=== PATIENT | female | born 1970 | race Caucasian/White ===

== ENCOUNTER → 2017-10-13 08:29 | Outpatient (CLI) | payer OTHER ==
[2017-10-14 10:22] LABS: HEPATITIS C ANTIBODY <0.1 (0.0-0.9)
== END | disposition home or self-care (01) ==
LOC: D.US 08:29
PROVIDERS: Internal Medicine Gastroenterology
DX: R79.89 Other specified abnormal findings of blood chemistry (principal); Z51.81 Encounter for therapeutic drug level monitoring; Z79.899 Other long term (current) drug therapy

== ENCOUNTER → 2017-10-19 09:18 | Outpatient (CLI) | payer OTHER | END | disposition home or self-care (01) | LOC: D.MRI 09:18 | DX: R93.2 Abnormal findings on diagnostic imaging of liver and biliary tract (principal); R79.89 Other specified abnormal findings of blood chemistry ==

== ENCOUNTER → 2017-10-27 08:50 | Outpatient (CLI) | payer OTHER ==
[~2017-10-27 08:50] MED LIST: LIALDA1.2 G PO
[2017-10-27 09:22] LABS: BASOPHILS 0.3 % (0-2); EOSINOPHILS 3.6 % (0-7); HEMATOCRIT 35.9 % (36.0-48.0); HEMOGLOBIN 12.4 g/dL (12-16); IMMATURE GRANULOCYTES 0.3 % (0-5); LYMPHOCYTES 23.1 % (15-50); MCH 37.7 pg (26.0-34.0); MCHC 34.5 g/dL (31.0-37.0); MCV 109.1 fL (80.0-100.0); MEAN PLATELET VOLUME 10.2 fL (7.4-10.4); MONOCYTES 10.6 % (2-11); NEUTROPHILS 62.1 % (40-80); RBC 3.29 10x6/uL (4.00-5.40); RDW 13.8 % (11.5-14.5); WBC 3.6 10x3/uL (4.8-10.8)
[2017-10-27 09:37] LABS: INR 0.96 (0.85-1.17); PROTIME 12.4 SECONDS (11.6-15.0)
[2017-10-27 09:38] LABS: APTT 32.3 SECONDS (22.8-39.4)
[2017-10-27 09:56] LABS: PLATELET COUNT 105 10x3/uL (130-400)
[2017-10-27 10:02] LABS: ALKALINE PHOSPHATASE 106 U/L (46-116); ALT (SGPT) 40 U/L (10-68); BILIRUBIN - DIRECT 0.37 mg/dL (0.00-0.30); BILIRUBIN - INDIRECT 1.47 mg/dL (0.00-1.00); BILIRUBIN - TOTAL 1.84 mg/dL (0.2-1.3); CALC OSMOLALITY 282 mosm/kg (275-300); CALCIUM 8.2 mg/dL (8.5-10.1); CARBON DIOXIDE 27.5 mmol/L (21.0-32.0); CHLORIDE - SERUM 107 mmol/L (98-107); CHOL - HDL RATIO 2.1 ratio (2.3-4.1); CHOLESTEROL, TOTAL 194 mg/dL (0-200); CREATININE - SERUM 0.5 mg/dL (0.6-1.3); FERRITIN 28 ng/mL (3-244); GAMMA GT 60 U/L (5-85); GLUCOSE 92 mg/dL (74-106); HDL CHOLESTEROL 93 mg/dL (32-96); LDL CHOLESTEROL 93 mg/dL (0-100); POTASSIUM - SERUM 3.9 mmol/L (3.5-5.1); PROTEIN - SERUM 6.6 g/dL (6.4-8.2); SODIUM 143 mmol/L (136-145); TRIGLYCERIDE 42 mg/dL (30-200); UREA NITROGEN 8 mg/dL (7-18); eGFR NON AFRICAN AMERICAN > 90 mL/min (90-120)
[2017-10-27 10:06] LABS: % SATURATION 47 % (15-55); IRON 170 ug/dl (35-150); TOTAL IRON BIND CAPACITY 358 ug/dl (260-445); UNSAT IRON BIND CAPACITY 188 ug/dl (150-375)
[2017-10-28 08:22] LABS: FOLATE (FOLIC ACID) - SERUM 18.3 ng/mL (>3.0)
[2017-10-28 10:19] LABS: ALPHA FETOPROTEIN -(TUMOR MRK) 5.1 ng/mL (0.0-8.3)
[2017-10-28 12:16] LABS: HAPTOGLOBIN 30 mg/dL (34-200)
[2017-10-28 16:13] LABS: ANA REFLEX - ANTICHROMATIN ABS <0.2 AI (0.0-0.9); ANA REFLEX - CENTROMERE B ABS <0.2 AI (0.0-0.9); ANA REFLEX - DBL STRANDED DNA 2 IU/mL (0-9); ANA REFLEX - DIRECT Positive (Negative); ANA REFLEX - JO-1 AB <0.2 AI (0.0-0.9); ANA REFLEX - RNP ANTIBODIES <0.2 AI (0.0-0.9); ANA REFLEX - SCL-70 <0.2 AI (0.0-0.9); ANA REFLEX - SJOGRENS AB SSA <0.2 AI (0.0-0.9); ANA REFLEX - SJOGRENS AB SSB 3.6 AI (0.0-0.9); ANA REFLEX - SMITH AB <0.2 AI (0.0-0.9)
[2017-10-29 13:17] LABS: MITOCHONDRIAL ANTIBODY 10.7 Units (0.0-20.0); SMOOTH MUSCLE ABS (ACTIN) 49 Units (0-19)
[2017-12-09 09:27] VITALS: BMI 25.5
== END | disposition home or self-care (01) ==
LOC: D.LAB 08:15
PROVIDERS: Internal Medicine Gastroenterology
DX: K76.9 Liver disease, unspecified (principal); R79.89 Other specified abnormal findings of blood chemistry; Z51.81 Encounter for therapeutic drug level monitoring; Z79.899 Other long term (current) drug therapy

== ENCOUNTER 2017-12-09 07:47 | Outpatient (CLI) | payer OTHER ==
[~2017-12-09] VITALS: Ht 157.5 cm; Wt 63.2 kg
[2017-12-09 08:22] LABS: BASOPHILS 0.2 % (0-2); EOSINOPHILS 1.8 % (0-7); HEMATOCRIT 36.5 % (36.0-48.0); HEMOGLOBIN 12.6 g/dL (12-16); IMMATURE GRANULOCYTES 0.4 % (0-5); LYMPHOCYTES 16.4 % (15-50); MCHC 34.5 g/dL (31.0-37.0); MEAN PLATELET VOLUME 9.9 fL (7.4-10.4); MONOCYTES 8.5 % (2-11); NEUTROPHILS 72.7 % (40-80); PLATELET COUNT 97 10x3/uL (130-400); RBC 3.41 10x6/uL (4.00-5.40); RDW 14.6 % (11.5-14.5); WBC 5.7 10x3/uL (4.8-10.8)
[2017-12-09 08:28] LABS: CALC OSMOLALITY 275 mosm/kg (275-300); CALCIUM 8.3 mg/dL (8.5-10.1); CARBON DIOXIDE 28.5 mmol/L (21.0-32.0); CHLORIDE - SERUM 107 mmol/L (98-107); CREATININE - SERUM 0.4 mg/dL (0.6-1.3); GLUCOSE 90 mg/dL (74-106); POTASSIUM - SERUM 3.6 mmol/L (3.5-5.1); SODIUM 139 mmol/L (136-145); UREA NITROGEN 7 mg/dL (7-18); eGFR NON AFRICAN AMERICAN > 90 mL/min (90-120)
[2017-12-09 08:41] LABS: APTT 33.9 SECONDS (22.8-39.4); INR 1.02 (0.85-1.17)
[2017-12-09 09:27] VITALS: Ht 157.5 cm; Wt 63.2 kg
[2017-12-09] MEDS ORDERED: LIALDA1.2 G PO (09:32)
[2017-12-09 09:58] LABS: PLATELET ESTIMATE DECREASED
== END 2017-12-09 15:45 | disposition home or self-care (01) ==
LOC: D.SP 07:47 → D.CT 10:00 → D.SP 15:45
PROVIDERS: Radiology Vascular & Interventional Radiology
DX: K76.89 Other specified diseases of liver (principal); Z01.812 Encounter for preprocedural laboratory examination

== ENCOUNTER → 2018-01-04 07:57 | Outpatient (CLI) | payer OTHER ==
[2017-12-09 09:27] VITALS: BMI 25.5
== END | disposition home or self-care (01) ==
LOC: D.MRI 12-30 08:30
DX: R79.89 Other specified abnormal findings of blood chemistry (principal); R93.8 Abnormal findings on diagnostic imaging of other specified body structures

== ENCOUNTER → 2018-08-27 09:14 | Outpatient (CLI) | payer OTHER ==
[2017-12-09 09:27] VITALS: BMI 25.5
== END | disposition home or self-care (01) ==
LOC: D.LAB 08-17 08:00
PROVIDERS: ATTEND Internal Medicine Gastroenterology
DX: K50.90 Crohn's disease, unspecified, without complications (principal); Z14.8 Genetic carrier of other disease

== ENCOUNTER → 2018-09-03 08:45 | Outpatient (CLI) | payer OTHER ==
[2017-12-09 09:27] VITALS: BMI 25.5
== END | disposition home or self-care (01) ==
LOC: D.LAB 08:45
PROVIDERS: ATTEND Family Medicine
DX: K51.90 Ulcerative colitis, unspecified, without complications (principal)

== ENCOUNTER → 2018-09-27 09:29 | Outpatient (CLI) | payer OTHER ==
[2017-12-09 09:27] VITALS: BMI 25.5
[~2018-09-27 09:29] MED LIST changes: +ANUSOL-HC 2.5%30 GM RC; +LOMOTIL 2.5-0.1 EAC1 PO; +PREDNISONE10 MG PO; +lialda PO
[2018-09-27 10:19] LABS: BASOPHILS 0.1 % (0-2); EOSINOPHILS 0.1 % (0-7); HEMATOCRIT 28.8 % (36.0-48.0); HEMOGLOBIN 8.4 g/dL (12-16); IMMATURE GRANULOCYTES 0.2 % (0-5); LYMPHOCYTES 15.3 % (15-50); MCH 25.2 pg (26.0-34.0); MCHC 29.2 g/dL (31.0-37.0); MCV 86.5 fL (80.0-100.0); MEAN PLATELET VOLUME 11.1 fL (7.4-10.4); MONOCYTES 9.2 % (2-11); NEUTROPHILS 75.1 % (40-80); RBC 3.33 10x6/uL (4.00-5.40); RDW 14.8 % (11.5-14.5); WBC 8.2 10x3/uL (4.8-10.8)
[2018-09-27 10:22] LABS: PLATELET COUNT 161 10x3/uL (130-400)
[2018-09-27 11:24] LABS: ERYTHROCYTE SEDIMENTATION RATE 21 mm/hr (0-20)
== END | disposition home or self-care (01) ==
LOC: D.LAB 09:29
PROVIDERS: ATTEND Internal Medicine Gastroenterology
DX: K62.5 Hemorrhage of anus and rectum (principal); K51.90 Ulcerative colitis, unspecified, without complications

== ENCOUNTER 2018-09-27 11:38 | Inpatient (IN) | payer OTHER ==
[~2018-09-27 11:38] MED LIST changes: -ANUSOL-HC 2.5%30 GM RC; -LOMOTIL 2.5-0.1 EAC1 PO; -PREDNISONE10 MG PO; -lialda PO
[2018-09-27] MEDS ORDERED: ANUSOL-HC 2.5%30 GM RC (11:45)
[2018-09-27 12:31] LABS: BASOPHILS 0.1 % (0-2); EOSINOPHILS 0.4 % (0-7); HEMATOCRIT 27.5 % (36.0-48.0); HEMOGLOBIN 8.1 g/dL (12-16); IMMATURE GRANULOCYTES 0.3 % (0-5); MCH 25.2 pg (26.0-34.0); MCHC 29.5 g/dL (31.0-37.0); MCV 85.7 fL (80.0-100.0); MEAN PLATELET VOLUME 10.8 fL (7.4-10.4); MONOCYTES 10.3 % (2-11); NEUTROPHILS 72.9 % (40-80); PLATELET COUNT 159 10x3/uL (130-400); RBC 3.21 10x6/uL (4.00-5.40); RDW 14.6 % (11.5-14.5)
[2018-09-27 13:46] LABS: ALBUMIN 2.3 g/dL (3.4-5.0); ALKALINE PHOSPHATASE 56 U/L (46-116); ALT (SGPT) 19 U/L (10-68); AMYLASE - SERUM 27 U/L (25-115); BILIRUBIN - TOTAL 0.62 mg/dL (0.2-1.3); CALC OSMOLALITY 279 mosm/kg (275-300); CALCIUM 8.2 mg/dL (8.5-10.1); CARBON DIOXIDE 33.1 mmol/L (21.0-32.0); CHLORIDE - SERUM 105 mmol/L (98-107); CREATININE - SERUM 0.5 mg/dL (0.6-1.3); GLUCOSE 100 mg/dL (74-106); LIPASE 80 U/L (73-393); PROTEIN - SERUM 6.4 g/dL (6.4-8.2); SODIUM 141 mmol/L (136-145); UREA NITROGEN 10 mg/dL (7-18); eGFR NON AFRICAN AMERICAN > 90 mL/min (90-120)
[2018-09-27 13:50] LABS: POTASSIUM - SERUM 2.6 mmol/L (3.5-5.1)
--- NOTE | 2018-09-27 15:32 | MORECARE ---
CASE MANAGEMENT DISCHARGE SUMMARY PATIENT: DEBBIE RANDHAWA UNIT: [id number] ADM DATE: 09/27/18 AGE: 47 : 74 SEX: F ROOM/BED: D.E14 AUTHOR: PARIS DE LA TORRE PHYSICIAN: REFERRING PHYSICIAN: TEJA JACK MD DATE OF SERVICE: 09/27/18 Discharge Plan Patient Name: DEBBIE RANDHAWA Facility: [facility]:[place] : 1970 Planned Disposition: Home Anticipated Discharge Date: 09/29/18 Discharge Date: Expected LOS: 2 Initial Reviewer: [email or web address] Initial Review Date: 09/27/2018 Generated: 09/27/18 4:31 pm DCP- Discharge Planning Updated by [email or web address]: Elyse Stewart on 09/27/18 2:[address] Patient Name: DEBBIE RANDHAWA Admission Status: ER Accout number: [id number] Admission Date: 09-27-2018 : 1970 Admission Diagnosis: Attending: TEJA JACK Current LOS: 1 Anticipated DC Date: 09-29-2018 Planned Disposition: Home Primary Insurance: [employer] POS Discharge Planning Comments: CM met with patient to complete initial dc planning assessment. CM educated patient on the CM role and verbal consent given by patient to complete assessment. CM verified patient's address, phone number, and emergency contact phone numbers. Patient lives at home independently with her . At discharge patient plans to return home and feels this is a safe discharge. CM discussed availability of home health, rehab services, and medical equipment. Patient denied known discharge needs at this time. Patient reports her will transport him/her home at time of discharge. CM will continue to follow and will assist as needed with dc plans/needs. Hip Hop Dancer: Elyse Stewart RN, [facility] DCPIA - Discharge Planning Initial Assessment Updated by [email or web address]: Elyse Stewart on 09/27/18 3:29 pm * Is the patient Alert and Oriented? Yes * PCP Dr. Jack * Pharmacy [facility] * Preadmission Environment Home with Family * ADLs Independent * Equipment None * List name and contact numbers for known caregivers / representatives who currently or will assist patient after discharge: Cristi Randhawa - spouse - [phone] * Verbal permission to speak to the caregivers and representatives has been obtained from the patient. Yes * Community resources currently utilized None * Additional services required to return to the preadmission environment? No * Can the patient safely return to the preadmission environment? Yes * Has this patient been hospitalized within the prior 30 days at any hospital? No Patient Name: DEBBIE RANDHAWA Page [id number] at 1532 All edits/amendments must be made on the electronic document DICTATION DATE: 09/27/181530 MANAGER MARKETING: MARKY 09/27/181530 RPT#: [id number] DC DATE: STATUS: ADM IN [facility] [address] [place] [address] END OF REPORT
[2018-09-27 17:20] VITALS: BP 134/89; BMI 23.5
[2018-09-27 19:10] LABS: HEMATOCRIT 26.7 % (36.0-48.0); HEMOGLOBIN 7.8 g/dL (12-16)
[2018-09-27 20:00] VITALS: BP 115/53
--- NOTE | 2018-09-27 20:00 | NUR ---
LAB CALLED ABOUT CRITICAL POTASSIUM OF 2.8. TREATED PER ELECTRILYTE PROTOCOL. WCTM
--- NOTE | 2018-09-27 20:00 | NUR ---
PT LYING IN BED. CALL LIGHT IN REACH. PT DENIES NEEDS OR PAIN. PT DID HAVE ELEVATED TEMP OF 100.3. DR. JACK IS AWARE AND ORDERED TYLENOL. PT DID COMPLAIN OF NAUSEA ZOFRAN WAS ORDERED ALSO. IN ROOM. BED IN LOW. SIDE RAILS X2. PT TAKES SELF TO BATHROOM. A/O X4. LUNGS CLEAR. BOWEL ACTIVE X4. WILL CONTINUE TO MONITOR.
--- NOTE | 2018-09-27 21:10 | HP ---
PATIENT: DEBBIE KAPADIA MEDICAL RECORD: [id number] ACCOUNT: [id number] LOCATION:[facility] D.2113 : 74 ADMISSION DATE: 09/27/18 PCP: TEJA JACK MD HISTORY AND PHYSICAL EXAMINATION DATE OF ADMISSION: 09/27/2018 CHIEF COMPLAINT: Bloody stools and rectal bleeding. HISTORY: This is a 47-year-old female who has ulcerative colitis and is followed by Dr. Aponte. She has had some bloody stools now for about 6 weeks along with abdominal cramping and pain. She is having trouble holding down solid foods due to her pain. She has been treated for ulcerative colitis, currently using hydrocortisone enemas b.i.d. for the last couple of weeks and her symptoms are ongoing, so she was referred here after calling Dr. Aponte's office. In the ER, her hemoglobin was 8.1 and hematocrit was 27.5. Repeat about 6 hours later showed her hemoglobin down to 7.8. Potassium was low at 2.6. Liver functions were normal. CT of abdomen and pelvis showed near pancolonic inflammatory changes in the rectum, sigmoid, descending, and transverse colon to the level of the hepatic flexure. She is admitted for further treatment of her ulcerative colitis. PAST MEDICAL HISTORY: Ulcerative colitis. She has had iron-deficiency anemia and been followed by Dr. Good for that. She has a history of scoliosis. PAST SURGICAL HISTORY: Bilateral tubal ligation. HOME MEDICATIONS: None now. She was on hydrocortisone enemas and completed that. ALLERGIES: PENICILLIN. FAMILY HISTORY: Parents with hypertension. SOCIAL HISTORY: She is . HABITS: No tobacco, alcohol, or drugs. REVIEW OF SYSTEMS: GENERAL: No major weight changes. HEENT: No particular sinus or allergy problems. RESPIRATORY: No history of asthma or emphysema. CARDIAC: No chest pain, palpitations, or history of heart disease. GASTROINTESTINAL: See above history. GENITOURINARY: No significant problems there. MUSCULOSKELETAL: No significant joint aches and pains. NEUROLOGIC: No seizures or migraines. PSYCHIATRIC: No depression or melancholia. PHYSICAL EXAMINATION: VITAL SIGNS: Temperature 98.8, pulse 87, respirations 16, blood pressure 134/89, and O2 sat 98%. GENERAL: She is in no acute distress. She is awake and alert. SKIN: Warm and dry. HEENT: Grossly within normal limits. HISTORY AND PHYSICAL [id number] DEBBIE KAPADIA NECK: Supple. No JVD or bruit. HEART: Regular rate and rhythm. No murmur. LUNGS: Clear. ABDOMEN: Soft. There is some mild tenderness. No guarding. No rebound. No mass. RECTAL: Not done. EXTREMITIES: No edema. LABORATORY DATA: CBC with white count of 8000, hemoglobin 8.1, and hematocrit 27.5 with recheck at 1855 hours down to 7.8 and 26.7 respectively. Basic metabolic panel is all normal except potassium was 2.6. Liver functions are normal as is amylase and lipase. CT of abdomen and pelvis shows near pancolonic inflammatory changes in rectum, sigmoid colon, descending colon, and transverse colon to the level of hepatic flexure. Of note, the patient was noted to have temperature this evening of 100.5. The patient and her state that she has been getting fever like that for the last 3 or 4 nights. She states she may be developing urinary tract infection. ASSESSMENT: 1. Ulcerative colitis with rectal bleed. 2. Acute blood loss anemia. 3. Hypokalemia. 4. Low-grade fever. PLAN: We will get blood cultures times 2 and urinalysis with culture if indicated. We will replace potassium. We will give her one unit of packed red blood cells and clear liquid diet. Dr. Aponte is consulted. Other tests or procedures as warranted. TRANSINT:[id number] Voice Confirmation ID: [id number] DOCUMENT ID: [id number] TEJA JACK MD at 2110 CC: [id number] DICTATION DATE: 09/27/181946 NAIL ASSEMBLY MACHINE OPERATOR: 09/27/182009 ADM IN [facility] [address] [place] [address]
--- NOTE | 2018-09-27 22:05 | NUR ---
BLOOD CONSENT SIGNED. VITALS WNL. BLOOD TRANSFUSION STARTED. WCTM CALL LIGHT IN REACH.
[2018-09-28] VITALS: BP 103/50
--- NOTE | 2018-09-28 01:02 | NUR ---
PT BLOOD TRANSFUSION COMPLETE. H&H HAS BEEN ORDERED AND LAST POTASSIUM FOR THE ELECT. PROT. WAS GIVEN. LAB FOR CMP IS ORDERED FOR 0500. WILL CHECK POTASSIUM WITH THAT LAB. VITALS WNL AFTER BLOOD. WCTM CALL LIGHT IN REACH
[2018-09-28 01:36] LABS: HEMATOCRIT 28.8 % (36.0-48.0)
--- NOTE | 2018-09-28 02:00 | NUR ---
BLOOD FINISHED AND PT WANTED ZOFRAN DRIP STARTED. THIS NURSE STARTED ZOFRAN DRIP. WCTM
[2018-09-28 02:51] LABS: ERYTHROCYTE SEDIMENTATION RATE 20 mm/hr (0-20)
--- NOTE | 2018-09-28 03:09 | NUR ---
PT HAS HAD MULTIPLE LOOSE STOOLS AND THEY ARE BLOODY. STOOL SAMPLE HAS BEEN SENT TO LAB WAITING FOR RESULTS. PT ASKED THIS NURSE TO PAGE DOCTOR ABOUT GETTING IMMODIUM DUE TO BUTTOCKS HURTING. PAGED HUBERT WAITING FOR PHONE CALL BACK. WCTM
[2018-09-28 04:00] VITALS: BP 105/53
--- NOTE | 2018-09-28 04:25 | NUR ---
I have reviewed this patient and I concur with the Shift Assessment completed by the Licensed Practical Nurse today this shift.
[2018-09-28 05:01] LABS: APPEARANCE HAZY (CLEAR); BILIRUBIN NEGATIVE (NEGATIVE); COLOR DK YELLOW (YELLOW); GLUCOSE NEGATIVE (NEGATIVE); KETONE LARGE mg/dL (NEGATIVE); NITRITE NEGATIVE (NEGATIVE); PROTEIN NEGATIVE (NEGATIVE); SPECIFIC GRAVITY 1.015 (1.005-1.020); UROBILINOGEN NORMAL (NORMAL)
[2018-09-28 06:28] LABS: BASOPHILS 0 % (0-2); EOSINOPHILS 0.8 % (0-7); HEMATOCRIT 27.8 % (36.0-48.0); HEMOGLOBIN 8.6 g/dL (12-16); IMMATURE GRANULOCYTES 0.4 % (0-5); LYMPHOCYTES 13.6 % (15-50); MCH 26.3 pg (26.0-34.0); MCHC 30.9 g/dL (31.0-37.0); MEAN PLATELET VOLUME 10.1 fL (7.4-10.4); MONOCYTES 11.8 % (2-11); NEUTROPHILS 73.4 % (40-80); RBC 3.27 10x6/uL (4.00-5.40); RDW 14.7 % (11.5-14.5); WBC 8.9 10x3/uL (4.8-10.8)
[2018-09-28 06:29] LABS: PLATELET COUNT 117 10x3/uL (130-400)
[2018-09-28 06:59] LABS: INR 1.27 (0.85-1.17); PROTIME 15.4 SECONDS (11.6-15.0)
[2018-09-28 07:00] LABS: ALBUMIN 1.9 g/dL (3.4-5.0); ALKALINE PHOSPHATASE 42 U/L (46-116); ALT (SGPT) 14 U/L (10-68); BILIRUBIN - TOTAL 0.87 mg/dL (0.2-1.3); CALC OSMOLALITY 274 mosm/kg (275-300); CARBON DIOXIDE 25.4 mmol/L (21.0-32.0); CHLORIDE - SERUM 107 mmol/L (98-107); CREATININE - SERUM 0.5 mg/dL (0.6-1.3); GLUCOSE 89 mg/dL (74-106); POTASSIUM - SERUM 3.2 mmol/L (3.5-5.1); PRE-ALBUMIN 8.7 mg/dL (18.0-35.7); PROTEIN - SERUM 4.8 g/dL (6.4-8.2); SODIUM 139 mmol/L (136-145); UREA NITROGEN 7 mg/dL (7-18); eGFR NON AFRICAN AMERICAN > 90 mL/min (90-120)
[2018-09-28 07:47] VITALS: BP 105/58
[2018-09-28 12:24] VITALS: BMI 25.2
--- NOTE | 2018-09-28 18:40 | NUR ---
I have reviewed this patient and I concur with the Shift Assessment completed by the Licensed Practical Nurse today this shift.
[2018-09-28 19:13] LABS: HEMOGLOBIN 9.2 g/dL (12-16)
[2018-09-28 19:24] VITALS: BP 102/57
[2018-09-28 19:25] VITALS: BP 109/54
--- NOTE | 2018-09-28 19:50 | NUR ---
PT'S IV IS LEAKING, WILL RESTART AN IV LATER.
[2018-09-28 20:00] VITALS: BP 108/62
--- NOTE | 2018-09-28 21:01 | NUR ---
IV RESTARTED AT PT'S RIGHT WRIST BY JAZZY FARMER.
[2018-09-29] VITALS: BP 107/58
--- NOTE | 2018-09-29 00:29 | NUR ---
REST QUIELTY IN BED, FAMILY MEMBER AT BEDSIDE, CALL LIGHT IN REACH.
[2018-09-29 04:00] VITALS: BP 90/57
[2018-09-29 06:50] LABS: BASOPHILS 0.1 % (0-2); EOSINOPHILS 0 % (0-7); HEMATOCRIT 30.9 % (36.0-48.0); HEMOGLOBIN 9.3 g/dL (12-16); IMMATURE GRANULOCYTES 0.6 % (0-5); LYMPHOCYTES 11.8 % (15-50); MCHC 30.1 g/dL (31.0-37.0); MCV 86.3 fL (80.0-100.0); MEAN PLATELET VOLUME 10.4 fL (7.4-10.4); MONOCYTES 3.1 % (2-11); NEUTROPHILS 84.4 % (40-80); RBC 3.58 10x6/uL (4.00-5.40); RDW 14.9 % (11.5-14.5); WBC 7.1 10x3/uL (4.8-10.8)
[2018-09-29 06:56] LABS: CALC OSMOLALITY 280 mosm/kg (275-300); CALCIUM 7.8 mg/dL (8.5-10.1); CARBON DIOXIDE 22.6 mmol/L (21.0-32.0); CHLORIDE - SERUM 108 mmol/L (98-107); CREATININE - SERUM 0.6 mg/dL (0.6-1.3); GLUCOSE 125 mg/dL (74-106); MAGNESIUM - SERUM 1.9 mg/dL (1.8-2.4); PLATELET COUNT 142 10x3/uL (130-400); POTASSIUM - SERUM 3.6 mmol/L (3.5-5.1); SODIUM 141 mmol/L (136-145); eGFR NON AFRICAN AMERICAN > 90 mL/min (90-120)
[2018-09-29 06:57] LABS: UREA NITROGEN 9 mg/dL (7-18)
[2018-09-29 07:05] LABS: INR 1.29 (0.85-1.17); PROTIME 15.5 SECONDS (11.6-15.0)
--- NOTE | 2018-09-29 07:45 | NUR ---
RECEIVED A/A/OX4. STATES SHE IS FEELING MUCH BETTER TODAY AND VOICED NO REQUESTS. ABD LESS DISTENDED TODAY THAN YESTERDAY AND DENIES ANY PAIN OR DISCOMFORT. UP TO BATHROOM AD CRISTIAN WITHOUT ANY ASST. ASSESSMENT COMPLETED AND WILL CONTINUE POC.
[2018-09-29 09:21] VITALS: BP 110/68
[2018-09-29 12:07] VITALS: BP 110/61
--- NOTE | 2018-09-29 12:26 | NUR ---
I have reviewed this patient and I concur with the Shift Assessment completed by the Licensed Practical Nurse today this shift.
[2018-09-29 15:57] VITALS: BP 105/61
[2018-09-29 20:00] VITALS: BP 114/66
--- NOTE | 2018-09-29 20:05 | NUR ---
RESUMIMG PT CARE. PT IS ALERT LAYING IN BED. AT BEDSIDE. NO C/O VOICED NO S/S OF DISTRESS NOTED. BED IN LOW POSITION WITH CALL LIGHT IN REACH. WILL CONTINUE TO MONITOR PT AND FOLLOW PLAN OF CARE.
[2018-09-30 04:00] VITALS: BP 111/73
[2018-09-30 05:12] LABS: BASOPHILS 0.1 % (0-2); EOSINOPHILS 0 % (0-7); HEMATOCRIT 28.9 % (36.0-48.0); HEMOGLOBIN 8.7 g/dL (12-16); IMMATURE GRANULOCYTES 0.4 % (0-5); LYMPHOCYTES 7.6 % (15-50); MCH 25.8 pg (26.0-34.0); MCHC 30.1 g/dL (31.0-37.0); MCV 85.8 fL (80.0-100.0); MEAN PLATELET VOLUME 10.9 fL (7.4-10.4); MONOCYTES 5.1 % (2-11); NEUTROPHILS 86.8 % (40-80); PLATELET COUNT 159 10x3/uL (130-400); RBC 3.37 10x6/uL (4.00-5.40); RDW 14.9 % (11.5-14.5); WBC 7.3 10x3/uL (4.8-10.8)
[2018-09-30 05:28] LABS: CALC OSMOLALITY 284 mosm/kg (275-300); CALCIUM 7.6 mg/dL (8.5-10.1); CARBON DIOXIDE 24.5 mmol/L (21.0-32.0); CHLORIDE - SERUM 108 mmol/L (98-107); CREATININE - SERUM 0.6 mg/dL (0.6-1.3); GLUCOSE 151 mg/dL (74-106); POTASSIUM - SERUM 3.8 mmol/L (3.5-5.1); SODIUM 141 mmol/L (136-145); eGFR NON AFRICAN AMERICAN > 90 mL/min (90-120)
[2018-09-30 05:30] LABS: UREA NITROGEN 16 mg/dL (7-18)
--- NOTE | 2018-09-30 07:40 | NUR ---
AM ROUNDING DONE WITH PATIENT HAVING NO COMPLAINTS. SPOUSE AT BEDSIDE. LEFT FA PIV SEEN WITH PROCALAMINE INFUSING AT 50 CC/HR. ON ROOM AIR. ON EP, K+ 3.8. WILL MONITOR.
[2018-09-30 08:15] VITALS: BP 107/68
--- NOTE | 2018-09-30 09:41 | NUR ---
PATIENT IS REQUESTING VANILLA ENSURE WITH EACH MEAL. ORDERED.
--- NOTE | 2018-09-30 12:13 | NUR ---
SITTING UP IN BED EATING LUNCH WITH NO COMPLAINTS. ENSURE IS ON LUNCH TRAY ORDERED.
[2018-09-30 13:09] VITALS: BP 103/55
--- NOTE | 2018-09-30 14:05 | NUR ---
Nutrition follow-up: Diet: full liquids with Ensure TID ProcalAmine PPN infusing @ 50 ml/hr Labs reviewed Wt: 137# RDN following.
[2018-09-30 15:18] VITALS: BP 94/56
--- NOTE | 2018-09-30 19:29 | NUR ---
RESUMING PT CARE. PT IS ALERT LAYING IN BED. IS AT BEDSIDE. NO C/O VOICED. NO S/S OF DISTRESS NOTED. WILL CONTINUE TO MOINTOR PT AND FOLLOW PLAN OF CARE.
[2018-09-30 20:05] VITALS: BP 108/67
[2018-10-01] VITALS: BP 105/60
--- NOTE | 2018-10-01 03:19 | NUR ---
I have reviewed this patient and I concur with the Shift Assessment completed by the Licensed Practical Nurse today this shift.
[2018-10-01 04:00] VITALS: BP 106/65
[2018-10-01 05:03] LABS: BASOPHILS 0 % (0-2); EOSINOPHILS 0 % (0-7); HEMATOCRIT 27.3 % (36.0-48.0); HEMOGLOBIN 8.2 g/dL (12-16); IMMATURE GRANULOCYTES 0.9 % (0-5); LYMPHOCYTES 10.1 % (15-50); MCV 86.7 fL (80.0-100.0); MEAN PLATELET VOLUME 10.4 fL (7.4-10.4); MONOCYTES 6.6 % (2-11); NEUTROPHILS 82.4 % (40-80); PLATELET COUNT 137 10x3/uL (130-400); RBC 3.15 10x6/uL (4.00-5.40); RDW 15.1 % (11.5-14.5); WBC 5.8 10x3/uL (4.8-10.8)
[2018-10-01 05:12] LABS: ALBUMIN 1.7 g/dL (3.4-5.0); ALKALINE PHOSPHATASE 36 U/L (46-116); ALT (SGPT) 10 U/L (10-68); BILIRUBIN - TOTAL 0.24 mg/dL (0.2-1.3); CALC OSMOLALITY 281 mosm/kg (275-300); CALCIUM 7.7 mg/dL (8.5-10.1); CARBON DIOXIDE 29.1 mmol/L (21.0-32.0); CHLORIDE - SERUM 109 mmol/L (98-107); CREATININE - SERUM 0.5 mg/dL (0.6-1.3); GLUCOSE 154 mg/dL (74-106); POTASSIUM - SERUM 3.9 mmol/L (3.5-5.1); PROTEIN - SERUM 4.9 g/dL (6.4-8.2); SODIUM 140 mmol/L (136-145); UREA NITROGEN 13 mg/dL (7-18); eGFR NON AFRICAN AMERICAN > 90 mL/min (90-120)
--- NOTE | 2018-10-01 07:19 | NUR ---
AM ROUNDING DONE WITH PATIENT HAVING NO NEEDS VOICED. SPOUSE IS AT BEDSIDE. ON ROOM AIR. LEFT AC PIV SEEN WITH CLIMIX INFUSING AT 50 CC/HR. ON EP, K+ 3.9. STATES TO HAVING 2 DIARREHA STOOLS LAST SHIFT. WILL MONITOR.
[2018-10-01 07:56] VITALS: BP 110/57
--- NOTE | 2018-10-01 09:47 | NUR ---
TOLERATING REGULAR BREAKFAST, NO NAUSEA.
[2018-10-01 12:20] VITALS: BP 123/69
--- NOTE | 2018-10-01 13:16 | NUR ---
DR JACK HERE TO SEE PATIENT. NEW ORDERS GIVEN. IV CONVERTED TO SALINE LOCK.
[2018-10-01 15:56] VITALS: BP 120/79
--- NOTE | 2018-10-01 17:20 | NUR ---
PT SITTING IN BED AT THIS TIME. RESP EVEN AND NONLABORED. NO ACUTE DISTRESS NOTED AT THIS TIME. PT TOLERATING MEALS WELL. PT IV SALINE LOCKED. ANTIBIOTICS CONVERTED TO PO. NO C/O VOICED AT THIS TIME. CL IN REACH.
--- NOTE | 2018-10-01 19:55 | NUR ---
RESUMING PT CARE. PT IS ALERT. LAYING IN BED. FAMILY AT BEDSIDE. NO ACUTE S/S OF DISTRESS NOTED. BED IN LOW POSITION WITH CALL LIGHT IN REACH. SIDE RAILS UP X 2. WILL CONTINUE TO MONITOR PT AND FOLLOW PLAN OF CARE.
--- NOTE | 2018-10-01 20:25 | NUR ---
RESUMING PT CARE. PT IS ALERT LAYING IN BED. AT BEDSIDE, NO C/O VOICED. NO S/S OF DISTRESS NOTED. BED IN LOW POSITION WITH CALL LIGHT IN REACH. WILL CONTINUE TO MONITOR PT AND FOLLOW PLAN OF CARE.
[2018-10-02 03:00] VITALS: BP 113/75
--- NOTE | 2018-10-02 03:36 | NUR ---
I have reviewed this patient and I concur with the Shift Assessment completed by the Licensed Practical Nurse today this shift.
--- NOTE | 2018-10-02 07:00 | NUR ---
RECEIVED BEDSIDE SHIFT REPORT. ASSUMED CARE OF PATIENT. PATIENT RESTING IN BED WITH EYES OPEN. CALL LIGHT WITHIN REACH. PATIENT LOOKING FORWARD TO GOING HOME TODAY. NO DISTRESS.
--- NOTE | 2018-10-02 08:34 | NUR ---
MEDICATED FOR HEADACHE AT THIS TIME. PATIENT STATES SHE FELT BETTER YESTERDAY THAN SHE DOES TODAY. CALL LIGHT WITHIN REACH.
[2018-10-02 08:44] VITALS: BP 111/72
[2018-10-02 08:46] LABS: BASOPHILS 0 % (0-2); EOSINOPHILS 0.6 % (0-7); HEMATOCRIT 31.7 % (36.0-48.0); HEMOGLOBIN 9.5 g/dL (12-16); IMMATURE GRANULOCYTES 0.4 % (0-5); LYMPHOCYTES 12.9 % (15-50); MCH 25.8 pg (26.0-34.0); MCV 86.1 fL (80.0-100.0); NEUTROPHILS 80.1 % (40-80); PLATELET COUNT 133 10x3/uL (130-400); RBC 3.68 10x6/uL (4.00-5.40)
[2018-10-02 08:57] LABS: CALCIUM 7.6 mg/dL (8.5-10.1); CHLORIDE - SERUM 105 mmol/L (98-107); CREATININE - SERUM 0.5 mg/dL (0.6-1.3); SODIUM 137 mmol/L (136-145); UREA NITROGEN 10 mg/dL (7-18); eGFR NON AFRICAN AMERICAN > 90 mL/min (90-120)
[2018-10-02 08:59] LABS: CALC OSMOLALITY 271 mosm/kg (275-300); GLUCOSE 84 mg/dL (74-106)
[2018-10-02 09:04] LABS: POTASSIUM - SERUM 2.7 mmol/L (3.5-5.1)
--- NOTE | 2018-10-02 09:16 | NUR ---
K+ SUPPLEMENT INITIATED AT THIS TIME AND PROVIDED ORANGE JUICE.
[2018-10-02] MEDS ORDERED: LOMOTIL 2.5-0.1 EAC1 PO (12:39)
[2018-10-02] MEDS ORDERED: PREDNISONE10 MG PO (12:39)
[2018-10-02] MEDS ORDERED: lialda PO (12:39)
--- NOTE | 2018-10-02 13:30 | NUR ---
1320 20 GAUGE IV REMOVED FROM LEFT AC. NO BLEEDING FROM SITE. TOLERATED REMOVAL OF IV WELL. CATHETER TIP INTACT. 2X2 GAUZE APPLIED AND SECURED WITH BANDAID. 1325 DISCHARGE INSTRUCTIONS PROVIDED. PATIENT VERBALIZED UNDERSTANDING OF ALL INSTRUCTIONS PROVIDED. THANKED THIS SURVEY CREW CHIEF FOR ALL CARES PROVIDED DURING HER STAY.
--- NOTE | 2018-10-02 13:35 | NUR ---
PATIENT LEFT UNIT. PATIENT DISCHARGED TO HOME. PATIENT REFUSED WHEELCHAIR. PATIENT REQUESTED TO WALK. PATIENT LEFT UNIT WITH HER , WITH ALL PERSONAL BELONGINGS, IN NO ACUTE DISTRESS.
--- NOTE | 2018-10-02 13:46 | NUR ---
CALLED PATIENTS CELLPHONE AND PHONE GOT DISCONNECTED. PATIENTS CALLED THIS SILVERER BACK AND THIS SILVERER NOTIFIED PATIENT OF K+ PRESCRIPTION THAT WAS FOUND AND NOT GIVEN AT DISCHARGE. PATIENT WILL CALL WHEN HE GETS TO THE PHARMACY SO THIS SILVERER CAN GIVE A VERBAL ORDER TO THE PHARMACIST. PHARMACY IS CLOSED BUT THE PHARMACIST IS A FRIEND OF THE PATIENTS AND IS MEETING THEM TO FILL THE MEDICINE.
--- NOTE | 2018-10-04 08:50 | MORECARE ---
CASE MANAGEMENT DISCHARGE SUMMARY PATIENT: DEBBIE RANDHAWA UNIT: [id number] ADM DATE: 09/27/18 AGE: 47 : 74 SEX: F ROOM/BED: D.7323 AUTHOR: PARIS DE LA TORRE PHYSICIAN: REFERRING PHYSICIAN: TEJA JACK MD DATE OF SERVICE: 10/04/18 Discharge Plan Patient Name: DEBBIE RANDHAWA Facility: [facility]:[place] : 1970 Planned Disposition: Home Anticipated Discharge Date: 10/02/18 Discharge Date: 10/02/2018 Expected LOS: 5 Initial Reviewer: [email or web address] Initial Review Date: 09/27/2018 Generated: 10/04/18 9:50 am DCP- Discharge Planning Updated by [email or web address]: Elyse Stewart on 09/27/18 2:[address] Patient Name: DEBBIE RANDHAWA Admission Status: ER Accout number: [id number] Admission Date: 09-27-2018 : 1970 Admission Diagnosis: Attending: TEJA JACK Current LOS: 1 Anticipated DC Date: 09-29-2018 Planned Disposition: Home Primary Insurance: [employer] POS Discharge Planning Comments: CM met with patient to complete initial dc planning assessment. CM educated patient on the CM role and verbal consent given by patient to complete assessment. CM verified patient's address, phone number, and emergency contact phone numbers. Patient lives at home independently with her . At discharge patient plans to return home and feels this is a safe discharge. CM discussed availability of home health, rehab services, and medical equipment. Patient denied known discharge needs at this time. Patient reports her will transport him/her home at time of discharge. CM will continue to follow and will assist as needed with dc plans/needs. Welding Machine Operator Gas: Elyse Stewart RN, [facility] DCPIA - Discharge Planning Initial Assessment Updated by [email or web address]: Elyse Stewart on 09/27/18 3:29 pm * Is the patient Alert and Oriented? Yes * PCP Dr. Jack * Pharmacy [facility] * Preadmission Environment Home with Family * ADLs Independent * Equipment None * List name and contact numbers for known caregivers / representatives who currently or will assist patient after discharge: Cristi Randhawa - spouse - [phone] * Verbal permission to speak to the caregivers and representatives has been obtained from the patient. Yes * Community resources currently utilized None * Additional services required to return to the preadmission environment? No * Can the patient safely return to the preadmission environment? Yes * Has this patient been hospitalized within the prior 30 days at any hospital? No Last DP export: 09/27/18 2:32 p Patient Name: DEBBIE RANDHAWA Page [id number] at 0850 All edits/amendments must be made on the electronic document DICTATION DATE: 10/04/1850 PREPPER: MARKY 10/04/18 0850 RPT#: [id number] DC DATE:10/02/18 STATUS: DIS IN [facility] [address] [place] [address] END OF REPORT
== END 2018-10-02 13:35 | disposition home or self-care (01) | DRG 386 ==
LOC: D.ER 11:38 → D.M2 15:07 → D.EDHOLD 15:07 → D.M2 16:21
PROVIDERS: Family Medicine; Internal Medicine Gastroenterology; ADMIT Family Medicine; ATTEND Family Medicine
DX: K51.90 Ulcerative colitis, unspecified, without complications (principal); D62 Acute posthemorrhagic anemia; E87.6 Hypokalemia; D50.9 Iron deficiency anemia, unspecified

== ENCOUNTER 2019-02-10 08:45 | Emergency (ER) | payer OTHER ==
[~2019-02-10] VITALS: Ht 157.5 cm; Wt 61.7 kg
[~2019-02-10 08:45] MED LIST changes: +ANUSOL-HC 2.5%30 GM RC; +LOMOTIL 2.5-0.1 EAC1 PO; +PREDNISONE10 MG PO; +lialda PO
[2019-02-10 08:50] VITALS: Ht 157.5 cm; Wt 61.7 kg
[2019-02-10] MEDS ORDERED: HUMIRA (08:54)
[2019-02-10 09:36] LABS: BASOPHILS 0.1 % (0-2); EOSINOPHILS 0.5 % (0-7); HEMATOCRIT 42.6 % (36.0-48.0); IMMATURE GRANULOCYTES 0.7 % (0-5); LYMPHOCYTES 8.2 % (15-50); MCHC 35.2 g/dL (31.0-37.0); MCV 90.8 fL (80.0-100.0); MONOCYTES 6.1 % (2-11); NEUTROPHILS 84.4 % (40-80); RBC 4.69 10x6/uL (4.00-5.40); RDW 12.4 % (11.5-14.5); WBC 14.8 10x3/uL (4.8-10.8)
[2019-02-10 09:38] LABS: PLATELET COUNT 208 10x3/uL (130-400)
[2019-02-10 09:41] LABS: APPEARANCE CLEAR (CLEAR); COLOR YELLOW (YELLOW); SPECIFIC GRAVITY 1.025 (1.005-1.020)
[2019-02-10 09:42] LABS: BILIRUBIN NEGATIVE (NEGATIVE); GLUCOSE NEGATIVE (NEGATIVE); KETONE LARGE mg/dL (NEGATIVE); NITRITE NEGATIVE (NEGATIVE); PROTEIN 1+ mg/dL (NEGATIVE); UROBILINOGEN NORMAL (NORMAL)
[2019-02-10 09:43] LABS: BACTERIA MODERATE /hpf (NONE SEEN); EPITHELIAL CELLS 0-5 /hpf (0-5); HYALINE CAST 0-5 /lpf (NONE SEEN); RED CELLS - URINE 0-5 /hpf (0-5); WHITE CELLS - URINE 0-5 /hpf (0-5)
[2019-02-10 09:57] LABS: ALBUMIN 2.8 g/dL (3.4-5.0); ALKALINE PHOSPHATASE 81 U/L (46-116); ALT (SGPT) 16 U/L (10-68); AMYLASE - SERUM 29 U/L (25-115); BILIRUBIN - TOTAL 0.56 mg/dL (0.2-1.3); CALC OSMOLALITY 269 mosm/kg (275-300); CALCIUM 8.9 mg/dL (8.5-10.1); CARBON DIOXIDE 24.2 mmol/L (21.0-32.0); CHLORIDE - SERUM 97 mmol/L (98-107); CREATININE - SERUM 0.7 mg/dL (0.6-1.3); GLUCOSE 79 mg/dL (74-106); LIPASE 71 U/L (73-393); POTASSIUM - SERUM 3.6 mmol/L (3.5-5.1); PROTEIN - SERUM 7.7 g/dL (6.4-8.2); SODIUM 136 mmol/L (136-145); TROPONIN-I < 0.017 ng/mL (0.000-0.060); UREA NITROGEN 9 mg/dL (7-18); eGFR NON AFRICAN AMERICAN > 90 mL/min (90-120)
[2019-02-10 13:36] LABS: ERYTHROCYTE SEDIMENTATION RATE 39 mm/hr (0-20)
[2019-02-10 14:16] VITALS: BP 128/77
== END 2019-02-10 14:16 | disposition other institution (70) ==
LOC: D.ER 08:45
PROVIDERS: Family Medicine
DX: K51.90 Ulcerative colitis, unspecified, without complications (principal)